=== PATIENT | male | born 1990 | race Caucasian/White ===

== ENCOUNTER 2021-08-01 18:24 | Emergency (ER) | payer SELFPAY ==
[~2021-08-01] VITALS: Ht 167.6 cm; Wt 112.0 kg
[2021-08-01 18:30] VITALS: BP 154/90
[2021-08-01] MEDS ORDERED: NAPR-1176 MT (23:23)
== END 2021-08-01 23:39 | disposition home or self-care (01) ==
LOC: ER 18:24
DX: M25.531 Pain in right wrist (principal); Z98.890 Other specified postprocedural states
CPT/HCPCS: 29125; 73110; 99283